=== PATIENT | male | born 1970 | race Native Hawaiian/Other Pacific Islander ===

== ENCOUNTER 2017-02-08 21:40 | Emergency (ER) | payer MEDICAID ==
[2017-02-08 22:21] VITALS: O2SAT 98
--- NOTE | 2017-02-08 23:08 | C.PDOC ---
History Of Present Illness 46 y/o male presents to ED with complaints of productive cough for 10 days worse when laying down. Occasional shortness of breath only with persistent cough. Patient was seen by PMD 1 week ago, started on antibiotics and steroids but reports cough persists. Patient is afebrile and denies chest pain, nausea, vomiting or any other complaints at this time. Time Seen by Provider: 02/08/17 22:20 Chief Complaint (Nursing): Flu-like Symptoms History Per: Patient History/Exam Limitations: no limitations Onset/Duration Of Symptoms: Days Current Symptoms Are (Timing): Still Present Associated Symptoms: Cough. denies: Fever, Chills, Nausea, Vomiting Ear Symptoms: Bilateral: None Past Medical History Reviewed: Historical Data, Nursing Documentation, Vital Signs Vital Signs: Last Vital Signs Temp 98 F 02/08/17 23:21 Pulse 78 02/08/17 23:21 Resp 16 02/08/17 23:21 BP 115/85 02/08/17 23:21 Pulse Ox 98 02/08/17 23:21 - Medical History PMH: Bronchitis, HTN Surgical History: No Surg Hx Family History: States: No Known Family Hx - Social History Hx Tobacco Use: No Hx Alcohol Use: No Hx Substance Use: No - Immunization History Hx Tetanus Toxoid Vaccination: No Hx Influenza Vaccination: No Hx Pneumococcal Vaccination: No Review Of Systems Constitutional: Negative for: Fever, Chills Respiratory: Positive for: Cough, Shortness of Breath Gastrointestinal: Negative for: Nausea, Vomiting Skin: Negative for: Rash Physical Exam - Physical Exam Appears: Non-toxic, No Acute Distress, Other (Occassional cough) Skin: Warm, Dry, No Rash Head: Atraumatic, Normacephalic Eye(s): bilateral: Normal Inspection, EOMI Ear(s): Bilateral: Normal Nose: Normal Oral Mucosa: Moist Throat: Normal, No Erythema, No Exudate Neck: Normal ROM, Supple Chest: Symmetrical Cardiovascular: Rhythm Regular Respiratory: Normal Breath Sounds, No Rales, No Rhonchi, No Wheezing Gastrointestinal/Abdominal: Soft, No Tenderness, No Guarding, No Rebound Neurological/Psych: Oriented x3, Normal Speech ED Course And Treatment ECG: Interpreted By Me, Viewed By Me ECG Rhythm: Sinus Rhythm Rate From EC (BPM) O2 Sat by Pulse Oximetry: 98 (RA) Pulse Ox Interpretation: Normal - Radiology CXR: Interpreted by Me, Viewed By Me CXR Interpretation: Yes: No Acute Disease. No: Pnemothorax Progress Note: Case discussed with Dr Guevara, agreed upon plan and treatment. Pt instructed to followup with PMD and return to ER if symtpoms persist or worsen. Disposition - Disposition Disposition: HOME/ ROUTINE Disposition Time: 23:00 Condition: STABLE Additional Instructions: Follow up with primary medical doctor in 1-3 days without fail for further evaluation. Take medications as prescribed. Return to the emergency department at any time if symptoms persist or worsen. Prescriptions: Promethazine/Codeine [Codeine/Promethazine 10 MG/5 Ml-6.25 MG/5 Ml] 5 ml PO TID PRN #60 ml PRN Reason: Cough Instructions: Acute Bronchitis (ED) Forms: [employer] (Urdu) - Clinical Impression Clinical Impression: Bronchitis - PA / PLATE CORRECTOR / Resident Statement MD/DO has reviewed & agrees with the documentation as recorded. - Scribe Statement The provider has reviewed the documentation as recorded by the Mik Delaney All medical record entries made by the Arianibpatria were at my direction and personally dictated by me. I have reviewed the chart and agree that the record accurately reflects my personal performance of the history, physical exam, medical decision making, and the department course for this patient. I have also personally directed, reviewed, and agree with the discharge instructions and disposition.
[2017-02-08 23:22] VITALS: BP 115/85; PULSE 78; RESP 16; TEMP 98
--- NOTE | 2017-02-09 08:35 | RAD ---
HISTORY: uri COMPARISON: Chest radiographs 02/09/2016. TECHNIQUE: Chest PA and lateral FINDINGS: LUNGS: No active pulmonary disease. PLEURA: No significant pleural effusion identified. No pneumothorax apparent. CARDIOVASCULAR: Normal. OSSEOUS STRUCTURES: No significant abnormalities. VISUALIZED UPPER ABDOMEN: Normal. OTHER FINDINGS: None. IMPRESSION: No interval acute cardiopulmonary disease appreciated.
--- NOTE | 2017-02-09 10:03 | CARD ---
APPROVED REPORT EKG Measurement Heart [id number] ID [id number] <Conclusion> Normal sinus rhythm Normal ECG
== END 2017-02-08 23:22 | disposition home or self-care (01) ==
LOC: C.ER 21:40
DX: J40 Bronchitis, not specified as acute or chronic (principal); I10 Essential (primary) hypertension